=== PATIENT | male | born 1940 | race African-American/Black ===

== ENCOUNTER → 2016-06-23 | Outpatient (CLI) | payer MEDICARE, OTHER ==
[~2016-06-23] VITALS: Ht 182.9 cm; Wt 94.0 kg
[~2016-06-23] MED LIST: ACE3T PO; ADENOSINE 79 MG in GIVE UN-DILUTED 0 ML IV ONE; ASPI-498 OR; ATOR10TA52 PO; CITA-73 PO; DOC100C PO; KEP500T PO; LIS20T PO; MECL25CH20 PO; METF-489 PO; NIFE30TA70 PO; NOR5T PO; QUET100T46 PO; TAMS0.4C36 PO
== END | disposition home or self-care (01) ==
LOC: XY 08:18
PROVIDERS: ATTEND Internal Medicine Cardiovascular Disease
DX: I11.9 Hypertensive heart disease without heart failure (principal); I34.2 Nonrheumatic mitral (valve) stenosis; I35.0 Nonrheumatic aortic (valve) stenosis; I34.0 Nonrheumatic mitral (valve) insufficiency; I07.1 Rheumatic tricuspid insufficiency; I31.3 Pericardial effusion (noninflammatory)
CPT/HCPCS: 78452; 93017; 93306; A9500; J0153

== ENCOUNTER → 2016-07-02 | Outpatient (CLI) | payer MEDICARE, OTHER ==
[~2016-07-02] MED LIST changes: -ADENOSINE 79 MG in GIVE UN-DILUTED 0 ML IV ONE; +ALPR0.5T PO; +DONE10TA17 PO; +GABA-494 PO; +INSU70IN3 SC; +OLAN5TAB26 PO; +PANT40TA2 PO
[2016-07-02 10:11] LABS: Basophils # (auto) 0 uL; Basophils % (auto) 0.3 % (0.0-2.0); Eosinophils # (auto) 0.2 uL; Eosinophils % (auto) 2.3 % (0.0-7.0); Hematocrit 40.1 % (41.0-53.0); Hemoglobin 12.8 g/dL (13.5-17.5); Mean Corpuscular Hemoglobin 30.7 pg (28.0-32.0); Mean Corpuscular Hgb Conc. 31.9 g/dL (32.0-36.0); Mean Corpuscular Volume 96.2 fL (80.0-100.0); Monocytes # (auto) 0.5 uL; Monocytes % (auto) 5.9 % (0.0-12.0); Neutrophils # (auto) 5.9 uL; Neutrophils % (auto) 68.5 % (37.0-80.0); Platelet Count (auto) 211 10^3/uL (140-450); Red Cell Distribution Width 13.8 % (11.6-16.0); White Blood Cell 8.6 10^3/uL (4.4-10.8)
[2016-07-02 10:39] LABS: Albumin 3.9 g/dL (3.4-5.0); BUN/Creatinine Ratio 13.5; Bilirubin, Total 0.8 mg/dL (0.2-1.0); Calcium 9.3 mg/dL (8.5-10.1); Potassium 3.7 mmol/L (3.5-5.1); Total Protein 7.2 g/dL (6.4-8.2)
== END | disposition home or self-care (01) ==
LOC: LAB 08:54
PROVIDERS: ATTEND Internal Medicine
DX: N39.0 Urinary tract infection, site not specified (principal); N40.0 Benign prostatic hyperplasia without lower urinary tract symptoms
CPT/HCPCS: 36415; 80053; 84153; 84439; 84443; 85025; 85049

== ENCOUNTER → 2016-07-06 | Day surgery (SDC) | payer MEDICARE, OTHER, MEDICAID ==
[2016-07-02 11:38] LABS: Albumin 3.9 g/dL (3.4-5.0); BUN/Creatinine Ratio 12.7; Bilirubin, Total 0.7 mg/dL (0.2-1.0); Calcium 9.2 mg/dL (8.5-10.1); Potassium 3.6 mmol/L (3.5-5.1); Total Protein 7.3 g/dL (6.4-8.2)
[2016-07-02 11:50] LABS: Partial Thromboplastin Time 28.2 sec (22.64-33.71); Prothrombin Time 12.2 sec (9.37-12.3)
[2016-07-02 11:57] LABS: Urine Bilirubin Negative (Negative); Urine Color Yellow (Yellow); Urine Glucose Normal (Normal); Urine Ketone Negative (Negative); Urine Nitrite Negative (Negative); Urine RBC 41 /hpf (0 - 3); Urine Urobilinogen Normal (Negative); Urine WBC Clumps PRESENT /hpf (None Seen); Urine pH 5.5 (5.0-8.0)
[2016-07-02 12:15] LABS: INR 1.18 (0.9-1.15)
[2016-07-02 12:35] LABS: Urine Blood 1+ /uL (Negative)
[2016-07-02 13:14] LABS: Basophils # (auto) 0.2 uL; Eosinophils # (auto) 0.2 uL; Eosinophils % (auto) 2.1 % (0.0-7.0); Hematocrit 40.9 % (41.0-53.0); Hemoglobin 12.9 g/dL (13.5-17.5); Lymphocytes # (auto) 1.7 uL; Mean Corpuscular Hemoglobin 30.4 pg (28.0-32.0); Mean Corpuscular Hgb Conc. 31.6 g/dL (32.0-36.0); Mean Corpuscular Volume 96.2 fL (80.0-100.0); Mean Platelet Volume 9.9 fL (7.4-10.4); Monocytes # (auto) 0.6 uL; Monocytes % (auto) 6.7 % (0.0-12.0); Neutrophils # (auto) 5.5 uL; Neutrophils % (auto) 68.1 % (37.0-80.0); Platelet Count (auto) 197 10^3/uL (140-450); White Blood Cell 8.3 10^3/uL (4.4-10.8)
[2016-07-02 13:19] LABS: Basophils % (auto) 0.3 % (0.0-2.0); Lymphocytes % (auto) 22.8 % (10.0-50.0)
[~2016-07-06] VITALS: Ht 182.9 cm; Wt 92.5 kg
[~2016-07-06] MED LIST changes: -ACE3T PO; -DOC100C PO; +LIDOCAINE 2% JELLY 11ml (GLYDO) ONE; -LIS20T PO; -MECL25CH20 PO; +MIDAZOLAM HCL 1MG/1ML-2 ML VIAL ONE; -NIFE30TA70 PO; -NOR5T PO; +ONDANSETRON HCL 4 MG/2 ML VIAL IV ONE; +PROPOFOL 10 MG/ML 20 ML IV ONE; -QUET100T46 PO; +ROCURONIUM 10MG/ML 10ML VIAL IV ONE; +ceFAZolin 1GM/50ML D5W 100 ML IV ONE; +ePHEDrine SULFATE 50 MG/ML AMP IV PRN; +fentaNYL CITRATE 100 MCG/2 ML VL IV ONE; +fentaNYL CITRATE 100 MCG/2 ML VL ONE; +hydrALAZINE HCL 20 MG/ML VL IV PRN
[2016-07-06 10:10] VITALS: BP 138/65
== END | disposition home or self-care (01) ==
LOC: SUR 05:59
PROVIDERS: ATTEND Urology
DX: N40.1 Benign prostatic hyperplasia with lower urinary tract symptoms (principal); N32.0 Bladder-neck obstruction; N36.8 Other specified disorders of urethra; E11.9 Type 2 diabetes mellitus without complications; F41.9 Anxiety disorder, unspecified; R56.9 Unspecified convulsions; I12.9 Hypertensive chronic kidney disease with stage 1 through stage 4 chronic kidney disease, or unspecified chronic kidney disease; N18.9 Chronic kidney disease, unspecified
CPT/HCPCS: 36415; 52648; 80053; 81001; 82962; 85025; 85049; 85610; 85730; J0690; J2250; J2704; J3010